=== PATIENT | male | born 1945 | race Caucasian/White ===

== ENCOUNTER 2020-07-30 22:42 | Emergency (ER) | payer MEDICARE, MEDICAID ==
[~2020-07-30] VITALS: Ht 182.9 cm; Wt 86.2 kg
[~2020-07-30 22:42] MED LIST: ALDACTONE25 MG PO; ASPIRIN EC81 MG PO; BACTRIM DS TAB1 EACH PO; CHRONULAC20 GM/30 M PO; ENULOSE10 GM/15 M PO; FLOMAX0.4 MG PO; FUROSEMIDE20 MG PO; INDERAL TAB 1010 MG PO; INDERAL TAB 4040 MG PO; LASIX40 MG PO; MYCOSTATIN POWD15 GM TOP; TRIAMTERENE-HC1 EAC2 PO; WELCHOL 625 MG625 MG PO
[2020-07-30 23:39] LABS: RED BLOOD COUNT 3.22 M/UL (4.20-5.50); WHITE BLOOD COUNT 16.4 K/UL (4.5-11.0)
[2020-07-30 23:51] LABS: BUN/CREATININE RATIO 26 (0-10)
== END 2020-07-31 12:14 | disposition expired ==
LOC: ER1 22:42 → CDU 07-31 00:42 → ER1 07-31 00:42 → CDU 07-31 14:35
PROVIDERS: Emergency Medicine
DX: A41.9 Sepsis, unspecified organism (principal); G04.90 Encephalitis and encephalomyelitis, unspecified; K85.90 Acute pancreatitis without necrosis or infection, unspecified; G06.2 Extradural and subdural abscess, unspecified; G93.41 Metabolic encephalopathy; R65.21 Severe sepsis with septic shock; C22.8 Malignant neoplasm of liver, primary, unspecified as to type; D61.818 Other pancytopenia; K76.6 Portal hypertension; K74.60 Unspecified cirrhosis of liver; Z51.5 Encounter for palliative care; J32.9 Chronic sinusitis, unspecified; Z66 Do not resuscitate; N18.30 Chronic kidney disease, stage 3 unspecified; I12.9 Hypertensive chronic kidney disease with stage 1 through stage 4 chronic kidney disease, or unspecified chronic kidney disease; Z20.822 Contact with and (suspected) exposure to COVID-19; Z87.440 Personal history of urinary (tract) infections; Z83.3 Family history of diabetes mellitus; Z82.49 Family history of ischemic heart disease and other diseases of the circulatory system; Z74.01 Bed confinement status
CPT/HCPCS: 36600; 70450; 71045; 80053; 82140; 82550; 82553; 82803; 83605; 83690; 83735; 83874; 83880; 84100; 84484; 85025; 85610; 85730; 86850; 86900; 86901; 87040; 87077; 87186; 93005; 94760; 99285; G0378; J3370; J3480; J7030; P9047; U0002